=== PATIENT | male | born 1985 | race Caucasian/White ===

== ENCOUNTER 2019-05-09 20:48 | Emergency (ER) | payer MEDICAID ==
[~2019-05-09] VITALS: Ht 172.7 cm; Wt 95.4 kg
[2019-05-09 20:55] VITALS: BP 145/83
[2019-05-09] MEDS ORDERED: LIDOcaine 1% W/epiNEPHrine 1:100,000 20ml vial IJ ONE (21:35)
[2019-05-09] MEDS ORDERED: LIDOcaine 1% w/EPI 1:200,000 injection 10mL vial IM ONE (21:35)
[2019-05-09] MEDS ORDERED: SULF1TAB49 PO (22:23)
== END 2019-05-09 22:36 | disposition home or self-care (01) ==
LOC: ER 20:48
DX: L02.413 Cutaneous abscess of right upper limb (principal); F41.9 Anxiety disorder, unspecified; F32.9 Major depressive disorder, single episode, unspecified; F17.200 Nicotine dependence, unspecified, uncomplicated; F12.90 Cannabis use, unspecified, uncomplicated; Z79.899 Other long term (current) drug therapy
CPT/HCPCS: 10060; 87070; 87077; 87186; 99283

== ENCOUNTER 2019-08-10 11:55 | Emergency (ER) | payer MEDICAID ==
[~2019-08-10] VITALS: Ht 170.2 cm; Wt 86.0 kg
[2019-08-10 12:07] VITALS: BP 166/105
== END 2019-08-10 13:09 | disposition home or self-care (01) ==
LOC: ER 11:56
DX: R07.89 Other chest pain (principal); R12 Heartburn; R11.10 Vomiting, unspecified; F41.9 Anxiety disorder, unspecified; F32.9 Major depressive disorder, single episode, unspecified; F12.90 Cannabis use, unspecified, uncomplicated; F15.90 Other stimulant use, unspecified, uncomplicated; F11.90 Opioid use, unspecified, uncomplicated
CPT/HCPCS: 71046; 93005; 99283

== ENCOUNTER 2020-12-27 22:27 | Emergency (ER) | payer MEDICAID ==
[~2020-12-27] VITALS: Ht 172.7 cm; Wt 86.4 kg
[2020-12-27 22:30] VITALS: BP 143/94
[2020-12-27] MEDS ORDERED: aspirin 81mg tab.chew PO ONE (23:25)
[2020-12-27] MEDS ORDERED: amox tr/potassium clavulanate 875/125mg TAB PO ONE (23:25)
== END 2020-12-28 00:44 | disposition left against medical advice (07) ==
LOC: ER 22:28
DX: L03.113 Cellulitis of right upper limb (principal); R60.0 Localized edema; M25.571 Pain in right ankle and joints of right foot; F41.9 Anxiety disorder, unspecified; F32.9 Major depressive disorder, single episode, unspecified; F12.10 Cannabis abuse, uncomplicated; F15.10 Other stimulant abuse, uncomplicated; F14.10 Cocaine abuse, uncomplicated
CPT/HCPCS: 99283

== ENCOUNTER 2024-01-06 04:24 | Emergency (ER) | payer MEDICAID ==
[~2024-01-06] VITALS: Ht 172.7 cm; Wt 113.6 kg
[2024-01-06 05:23] VITALS: BP 138/88; PULSE 104; RESP 18; TEMP 97.4; O2SAT 99
[2024-01-06] MEDS ORDERED: CEPH-585 PO (05:47)
== END 2024-01-06 06:05 | disposition home or self-care (01) ==
LOC: ER 04:25
DX: S40.922A Unspecified superficial injury of left upper arm, initial encounter (principal); S40.921A Unspecified superficial injury of right upper arm, initial encounter; F41.9 Anxiety disorder, unspecified; F32.A Depression, unspecified; F12.90 Cannabis use, unspecified, uncomplicated; F15.90 Other stimulant use, unspecified, uncomplicated; F11.90 Opioid use, unspecified, uncomplicated; X30.XXXA Exposure to excessive natural heat, initial encounter; Y93.89 Activity, other specified; Y92.89 Other specified places as the place of occurrence of the external cause; Y99.8 Other external cause status
CPT/HCPCS: 99283